=== PATIENT | male | born 1965 | race Caucasian/White ===

== ENCOUNTER 2022-01-08 07:43 | Day surgery (SDC) | payer MEDICAID ==
[~2022-01-08] VITALS: Ht 177.8 cm; Wt 108.3 kg
[2022-01-08] VITALS (12 sets, daily range): BP systolic 117–156; BP diastolic 71–92
[2022-01-08] MEDS ORDERED: normal saline 1,000 ML IV SCH (08:10)
[2022-01-08] MEDS ORDERED: nitroGLYCERIN 0.4mg SUBLingual tab SL PRN (08:10)
[2022-01-08] MEDS ORDERED: LORazepam 0.5 MG tablet PO PRN (08:10)
[2022-01-08] MEDS ORDERED: diphenhydrAMINE 25mg capsule PO PRN (08:10)
[2022-01-08] MEDS ORDERED: ALBU90AE (08:23)
[2022-01-08] MEDS ORDERED: PARO10TA4 PO (08:23)
[2022-01-08] MEDS ORDERED: CHOL500050 PO (08:23)
[2022-01-08] MEDS ORDERED: GABA600T13 PO (08:23)
[2022-01-08] MEDS ORDERED: MELO-102 PO (08:23)
[2022-01-08] MEDS ORDERED: GEMF600T89 PO (08:23)
[2022-01-08] MEDS ORDERED: midazolam 1 mg/ML 2ml injection ONE ×2 (10:15→10:59)
[2022-01-08] MEDS ORDERED: fentaNYL/PF 50MCG/1 ML 2ML syringe ONE (10:16)
[2022-01-08] MEDS ORDERED: iohexol 350MG/ML 100ml bottle IV ONE (10:16)
[2022-01-08] MEDS ORDERED: iohexol 350 MG/ML 50ML vial IV ONE ×2 (10:16→11:09)
[2022-01-08] MEDS ORDERED: LIDOcaine 1% 30ml preserv. free vial ONE (10:16)
[2022-01-08] MEDS ORDERED: nitroGLYCERIN-Tridil 50MG/D5W 250 ML IV ONE (11:01)
== END 2022-01-08 18:00 | disposition home or self-care (01) ==
LOC: SSTAY O 07:43
PROVIDERS: ATTEND Internal Medicine Cardiovascular Disease
DX: R94.39 Abnormal result of other cardiovascular function study (principal); F41.1 Generalized anxiety disorder; F40.240 Claustrophobia; M47.9 Spondylosis, unspecified; G62.9 Polyneuropathy, unspecified; Z79.899 Other long term (current) drug therapy
CPT/HCPCS: 93005; 93458; 99152; 99153; A6258; C1751; C1760; C1769; J1644; J2250; J3010; J3490; J7030; Q0163; Q9967; A4620; A6402

== ENCOUNTER 2023-11-16 10:30 | Inpatient (IN) | payer MEDICAID ==
[~2023-11-16] VITALS: Ht 177.8 cm; Wt 114.3 kg
[~2023-11-16 10:30] MED LIST: GABA-1405 PO; GEMF600T89 PO; MELO-102 PO
[2024-03-09 14:16] LABS: BASOPHILS # (AUTO) 0.1 X10'3 (0-0.2); BASOPHILS % (AUTO) 0.9 % (0-1); EOSINOPHILS # (AUTO) 0.3 X10'3 (0-0.9); EOSINOPHILS % (AUTO) 2.2 % (0-6); LYMPHOCYTES # (AUTO) 2.4 X10'3 (1.1-4.8); LYMPHOCYTES % (AUTO) 19.5 % (21-51); MEAN CORPUSCULAR HGB CONC 33.3 g/dL (33.0-36.5); MEAN CORPUSCULAR VOLUME 93.2 FL (78-98); MEAN PLATELET VOLUME 8.4 FL (7.4-10.4); MONOCYTES % (AUTO) 8.3 % (2-12); NEUTROPHILS # (AUTO) 8.5 X10'3 (1.8-7.7); NEUTROPHILS % (AUTO) 69.1 % (42-75); PRE OP HEMATOCRIT 48.1 % (42.0-52.0); PRE OP PLATELET COUNT 250 X10'3 (140-440); PRE OP WHITE BLOOD COUNT 12.3 10'3 (4.8-10.8); RED BLOOD COUNT 5.16 X10'6 (4.70-6.10); RED CELL DISTRIBUTION WIDTH 14.1 % (11.5-14.5)
[2024-03-09 14:47] LABS: ALBUMIN 3.7 G/DL (3.4-5.0); ALBUMIN/GLOBULIN RATIO 1.1 (1.1-1.5); ALKALINE PHOSPHATASE 78 IU/L (46-116); BLOOD UREA NITROGEN 18 MG/DL (7-18); BUN/CREATININE RATIO 14.6 (10.0-20.0); CALCIUM 9.1 MG/DL (8.5-10.1); CHLORIDE 106 MMOL/L (99-107); CREATININE 1.23 MG/DL (0.60-1.10); PRE OP ALT 41 U/L (30-65); PRE OP ANION GAP 9 (8-16); PRE OP AST 12 U/L (10-37); PRE OP BILIRUB, TOTAL 0.3 MG/DL (0.0-1.0); PRE OP GLUCOSE 158 MG/DL (70-104); PRE OP POTASSIUM 4.2 MMOL/L (3.4-5.1); PRE OP SODIUM 140 MMOL/L (135-145); TOTAL CARBON DIOXIDE 25.5 MMOL/L (24-32); TOTAL PROTEIN 7.1 G/DL (6.4-8.2); eGFR 60 ML/MIN
[2024-03-09] MEDS ORDERED: ASPI-612 PO (16:04)
[2024-03-09] MEDS ORDERED: METO-395 PO (16:04)
[2024-03-09 17:27] LABS: HEMOGLOBIN A1C 5.9 % (4.5-6.2)
[2024-03-14] MEDS ORDERED: CHOL125C7 PO (10:51)
[2024-03-14] MEDS ORDERED: ESOM20CA PO (11:04)
[2024-03-14] MEDS ORDERED: OMEG-133 PO (11:05)
[2024-03-15] VITALS (24 sets, daily range): BP systolic 115–158; BP diastolic 68–96; PULSE 72–97; RESP 11–20; TEMP 97.6–98.1; O2SAT 93–99
[2024-03-15] MEDS ORDERED: VANCOMYCIN 1,500MG inj. 1,500 MG in normal saline 500ml IV soln 300 ML IV ONE (05:30)
[2024-03-15] MEDS: ringers solution, lacted 1,000 ML IV SCH (06:07)
[2024-03-15] MEDS: famotidine 20mg tablet PO ONE (06:07)
[2024-03-15] MEDS: tranexamic acid 650mg tablet PO ONE (06:07)
[2024-03-15] MEDS: VANCOMYCIN/WATER FOR INJ (PEG) 1.5GM/300 ML IVPB IV ONE (06:08)
[2024-03-15] MEDS: DOCUMENT DATE & TIME OF BETA-BLOCKER PO ONE (06:10)
[2024-03-15] MEDS: ceFAZolin 2gm in dextrose, iso 50 ML IV ONE (06:10)
[2024-03-15] MEDS ORDERED: mineral oil 10ml sterile, topical TP ONE (06:50)
[2024-03-15] MEDS ORDERED: BUPIVACAINE/MELOXICAM 14 ML VIAL IL ONE ×2 (06:54→08:11)
[2024-03-15] MEDS ORDERED: cloNIDine hcl/PF 100mcg/ml inj ONE (07:16)
[2024-03-15] MEDS ORDERED: tetracaine 1% (10mg/ml) pres. free inj. ONE (07:16)
[2024-03-15] MEDS ORDERED: MIDAZolam 1 MG/ML 5ML VIAL ONE (07:21)
[2024-03-15] MEDS ORDERED: BUPIVAcaine/dex-water/PF 7.5 mg/ml 2ml ampul ONE (07:28)
[2024-03-15] MEDS ORDERED: meperidine/PF 25mg/ml syringe IV PRN (07:35)
[2024-03-15] MEDS ORDERED: morphine 4 MG/ML inj SYRINge IV PRN (07:35)
[2024-03-15] MEDS ORDERED: labetalol 20mg/4ml (5mg/ml) syringe IV PRN (07:35)
[2024-03-15] MEDS ORDERED: proCHLORperazine 10 MG/2 ml inj IV PRN (07:35)
[2024-03-15] MEDS ORDERED: HYDROmorphone/PF 0.2 MG/ML SYRINGE IV PRN ×2 (07:35)
[2024-03-15] MEDS ORDERED: ondansetron/PF 4mg/2ml inj IV PRN ×2 (07:35→13:40)
[2024-03-15] MEDS ORDERED: hydrALAZINE 20mg/ml inj. IV PRN (07:35)
[2024-03-15] MEDS ORDERED: fentaNYL/PF 50MCG/1 ML 2ML syringe ONE (07:37)
[2024-03-15] MEDS ORDERED: 0.9 % SODIUM CHLORIDE 10 ML VIAL ONE ×2 (08:31)
[2024-03-15] MEDS ORDERED: ROPIVAcaine 0.5% (5mg/ml) 30ml vial ONE (08:31)
[2024-03-15] MEDS ORDERED: propofol inj 20 ML IV ONE ×3 (08:31)
[2024-03-15] MEDS ORDERED: dexamethasone sod phosphate 4mg/ml inj. ONE (08:31)
[2024-03-15] MEDS ORDERED: ePHEDrine 50MG/ML INJ. ONE (08:31)
[2024-03-15] MEDS: acetaminophen 1,000mg/100ml IV 100 ML IV ONE (12:01)
[2024-03-15] MEDS: morphine 2 MG/ML inj. syringe IV PRN (13:02)
[2024-03-15] MEDS ORDERED: magnesium hydroxide 30ml (MOM) UD suspension PO PRN (13:40)
[2024-03-15] MEDS ORDERED: oxyCODONE IR 5mg (immed. release) tablet PO PRN (13:40)
[2024-03-15] MEDS ORDERED: diphenhydrAMINE 25mg capsule PO PRN ×2 (13:40)
[2024-03-15] MEDS ORDERED: naloxone 0.4 mg/ml inj IV PRN (13:40)
[2024-03-15] MEDS ORDERED: acetaminophen 325mg tablet PO PRN (13:40)
[2024-03-15] MEDS ORDERED: bisacodyl 10mg suppository rectal RC PRN (13:40)
[2024-03-15] MEDS ORDERED: HYDROmorphone 1 mg/ml syringe IV PRN (13:40)
[2024-03-15] MEDS ORDERED: HYDROmorphone inj. 0.5 MG/0.5 ML DISP.SYRIN IV PRN (13:40)
[2024-03-15] MEDS: oxyCODONE IR 5mg (immed. release) tablet PO PRN (15:25)
[2024-03-15] MEDS: acetaminophen 325mg tablet PO SCH (15:25)
[2024-03-15] MEDS: potassium cl 20mEq in 1/2 NS 1,000 ML IV SCH (16:51)
[2024-03-15] MEDS: ceFAZolin/D5W- 1GM premix 50 ML IV SCH (16:51)
[2024-03-15] MEDS: VANCOMYCIN 1GM 200ML H20 (PEG) 200 ML IV SCH (19:38)
[2024-03-15] MEDS: gemfibrozil 600mg tablet PO SCH (19:39)
[2024-03-15] MEDS: sennosides 8.6mg tablet PO SCH (19:40)
[2024-03-15] MEDS: gabapentin 300mg capsule PO SCH (19:41)
[2024-03-16 01:44] VITALS: BP 145/82; PULSE 87; RESP 18; TEMP 98.9; O2SAT 94
[2024-03-16] MEDS: ringers solution, lacted 1,000 ML IV SCH (03:57)
[2024-03-16 06:00] VITALS: BP 136/74; PULSE 84; RESP 20; TEMP 97.9; O2SAT 94
[2024-03-16 06:18] LABS: BASOPHILS # (AUTO) 0.1 X10'3 (0-0.2); BASOPHILS % (AUTO) 0.5 % (0-1); EOSINOPHILS # (AUTO) 0.1 X10'3 (0-0.9); EOSINOPHILS % (AUTO) 0.5 % (0-6); HEMATOCRIT 39.1 % (42.0-52.0); HEMOGLOBIN 13.4 g/dl (14.0-17.9); LYMPHOCYTES # (AUTO) 1.9 X10'3 (1.1-4.8); LYMPHOCYTES % (AUTO) 15.7 % (21-51); MEAN CORPUSCULAR HEMOGLOBIN 31.2 PG (27.0-31.0); MEAN CORPUSCULAR HGB CONC 34.2 g/dL (33.0-36.5); MEAN CORPUSCULAR VOLUME 91.3 FL (78-98); MEAN PLATELET VOLUME 8.6 FL (7.4-10.4); MONOCYTES # (AUTO) 1.5 X10'3 (0-0.9); MONOCYTES % (AUTO) 12.6 % (2-12); NEUTROPHILS # (AUTO) 8.6 X10'3 (1.8-7.7); NEUTROPHILS % (AUTO) 70.7 % (42-75); PLATELET COUNT 206 X10'3 (140-440); RED BLOOD COUNT 4.28 X10'6 (4.70-6.10); RED CELL DISTRIBUTION WIDTH 14.1 % (11.5-14.5); WHITE BLOOD COUNT 12.1 X10'3 (4.5-11.0)
[2024-03-16 06:48] LABS: ANION GAP 7 (8-16); CHLORIDE 104 MMOL/L (99-107); POTASSIUM 4.4 MMOL/L (3.5-5.1); SODIUM 138 MMOL/L (135-145); TOTAL CARBON DIOXIDE 27.3 MMOL/L (24-32)
[2024-03-16 07:00] VITALS: RESP 14; O2SAT 94
[2024-03-16] MEDS ORDERED: aspirin 81mg, enteric-coated 1 TAB TABLET.DR PO SCH (08:00)
[2024-03-16] MEDS: OMEGA-3/DHA/EPA/FISH OIL 1 EACH CAPSULE.DR PO SCH (08:29)
[2024-03-16] MEDS: MELOXICAM 7.5 MG TABLET PO SCH (08:30)
[2024-03-16] MEDS: pantoprazole 40mg Tablet.DR PO SCH (08:31)
[2024-03-16] MEDS: cholecalciferol (vitamin D3) 1,000 unit (25mcg) tablet PO SCH (08:33)
[2024-03-16] MEDS: aspirin 325mg tablet PO SCH (08:33)
[2024-03-16] MEDS: metoprolol succinate 25mg (24-HOUR) SR. Tablet PO SCH (08:38)
[2024-03-16 10:00] VITALS: BP 105/76; PULSE 71; RESP 16; TEMP 98.6; O2SAT 93
[2024-03-16] MEDS ORDERED: celeCOXIB 100mg capsule PO SCH (20:00)
[2024-03-17] MEDS ORDERED: acetaminophen 325mg tablet PO PRN (18:20)
== END 2024-03-16 13:16 | disposition home or self-care (01) | DRG 326 ==
LOC: PAS IN 03-15 05:25 → ORTHO 4S 03-15 14:02
PROVIDERS: ADMIT Orthopaedic Surgery; ATTEND Orthopaedic Surgery
PROC: 8E0YXBZ Computer Assisted Procedure of Lower Extremity (ICD-10-PCS; 2024-03-15)
PROC: 8E0Y0CZ Robotic Assisted Procedure of Lower Extremity, Open Approach (ICD-10-PCS; 2024-03-15)
PROC: 3E0T3BZ Introduction of Anesthetic Agent into Peripheral Nerves and Plexi, Percutaneous Approach (ICD-10-PCS; 2024-03-15)
PROC: 0SRC0J9 Replacement of Right Knee Joint with Synthetic Substitute, Cemented, Open Approach (ICD-10-PCS; principal; 2024-03-15 07:28)
DX: M17.11 Unilateral primary osteoarthritis, right knee (principal)
CPT/HCPCS: 36415; 80051; 80053; 82948; 83036; 85025; 87081; 97110; 97116; 97161; 97530; A4215; A4615; A6253; A6258; A6449; A7000; C1713; C1776; G0378; J0131; J0690; J0735; J1100; J2250; J2270; J2704; J2795; J3010; J3370; J3372; J3480; J3490; J7040; J7120